=== PATIENT | female | born 1965 | race Caucasian/White ===

== ENCOUNTER 2021-02-08 07:19 | Inpatient (IN) | payer MEDICAID ==
[~2021-02-08] VITALS: Ht 165.1 cm; Wt 95.2 kg
[2021-02-08] MEDS ORDERED: SODIUM CHLORIDE 0.9% 1,000ML IVBOLUS ONE (07:30)
[2021-02-08 07:47] LABS: MEAN CORPUSCULAR HEMOGLOBIN 26.1 pg (27.0-34.8); MEAN CORPUSCULAR HGB CONC 32.4 g/dL (32.4-35.8); MEAN PLATELET VOLUME 7.5 fL (7.4-10.4); PLATELET COUNT 391 x10^3/uL (130-400); RED BLOOD COUNT 3.47 x10^6/uL (3.82-5.3); RED CELL DISTRIBUTION WIDTH 19.1 % (9.6-15.2)
[2021-02-08 07:57] LABS: ANION GAP 5 mmol/L (5-15); CALCIUM 9.1 mg/dL (8.5-10.1); CHLORIDE 91 mmol/L (98-107)
[2021-02-08 08:00] LABS: ALANINE AMINOTRANSFERASE 20 U/L (12-78); ALKALINE PHOSPHATASE 139 U/L (45-117); BILIRUBIN,TOTAL 0.5 mg/dL (0.2-1.0); CREATININE 0.63 mg/dL (0.55-1.02); TOTAL PROTEIN 6.9 g/dL (6.4-8.2)
[2021-02-08 08:12] LABS: ANISOCYTOSIS 1+; LYMPH#(MANUAL) 2.77 x10^3/uL (1-3.4); LYMPHS% (MANUAL) 36 % (22-44); MONOS#(MANUAL) 2.54 x10^3/uL (0.3-2.7); MONOS% (MANUAL) 33 % (2-9); SEG#(MANUAL) 2.39 x10^3/uL (1.8-6.8); SEGS% (MANUAL) 31 % (42-75)
[2021-02-08 08:13] LABS: <PLATELET ESTIMATE> ADEQUATE
--- NOTE | 2021-02-08 08:14 | NUR ---
IV PLACED, NS BOLUS INFUSING. ATTEMPT TO ST CATH FOR URINE. PT UNABLE TO LAY BACK MORE THAN 30 DEGREES. PT STATES SHE GETS UP TO BSC AT [place]. PT WITH ONE PERSON FULL ASSIST UP TO BSC. PT WITH EXERTIONAL DYSPNEA, DESAT TO 76%. PT C/O 10/10 PAIN TO BACK, ABD, "ALL OVER". AFTER PT RETURNED TO [facility], PULSE OX INCREASED TO 92% ON 15L NRB. ERP NOTIFIED. URINE COLLECTED/SENT TO LAB. CALL LIGHT WITHIN REACH.
[2021-02-08 08:30] LABS: MICROSCOPIC INDICATED
--- NOTE | 2021-02-08 08:51 | NUR ---
PT WITH FREQUENT REQUESTS, CALL LIGHT ON. PT ASKING FOR THIS RN TO STAY IN ROOM WITH HER, "DON'T WANT TO BE LEFT ALONE". PT VERY ANXIOUS, PULLING OFF OXYGEN MASK AT TIMES AND TANGLING IV LINE AND MONITORING CORDS. ERP AND ASSOCIATE MEDIA DIRECTOR NOTIFIED.
[2021-02-08] MEDS ORDERED: BUDE10.22 INH (09:45)
[2021-02-08] MEDS ORDERED: BISA5TAB5 PO (09:45)
[2021-02-08] MEDS ORDERED: CYCL10TA2 PO (09:45)
[2021-02-08] MEDS ORDERED: SODIUM PHOSPHATE PR (09:45)
[2021-02-08] MEDS ORDERED: POTA20PA25 PO (09:45)
[2021-02-08] MEDS ORDERED: LIDO700A20 TD (09:45)
[2021-02-08] MEDS ORDERED: FURO40TA6 PO (09:45)
[2021-02-08] MEDS ORDERED: MIDO10TA PO (09:45)
[2021-02-08] MEDS ORDERED: MYCO250C PO (09:45)
[2021-02-08] MEDS ORDERED: ALBU8.5H8 INH (09:45)
[2021-02-08] MEDS ORDERED: APIX5TAB PO (09:45)
[2021-02-08] MEDS ORDERED: PRED10TA14 PO (09:45)
[2021-02-08] MEDS ORDERED: TRAZ50TA66 PO (09:45)
[2021-02-08] MEDS ORDERED: ONDA4TAB7 PO (09:45)
[2021-02-08] MEDS ORDERED: POLY17PO5 PO (09:45)
[2021-02-08] MEDS ORDERED: OXYC10TA6 PO (09:45)
[2021-02-08] MEDS ORDERED: FENT-58 TD (09:45)
--- NOTE | 2021-02-08 09:54 | NUR ---
MED RECORDS RECEIVED FROM [facility]. ALL RESULTS BACK, PT FOR RECHECK.
--- NOTE | 2021-02-08 10:04 | NUR ---
ADD ON ORDER FOR BNP. PT ASSISTED IN REPOSITIONING. UNABLE TO FIND A POSITION OF COMFORT FOR PT. POC EXPLAINED AGAIN. PT CONTINUES TO ASK FOR THIS RN TO STAY IN ROOM. VS UPDATED IN COMPUTER.
--- NOTE | 2021-02-08 10:55 | NUR ---
PT CONTINUES TO PUT TELESCOPE MAINTENANCE LIGHT WITH SAME REQUESTS. POC REINFORCED. PT THEN STATING NEED FOR BR. D/T PT'S PAIN AND HYPOXIA WITH EXERTION, PT UNABLE TO GET UP TO BSC. BEDPAN PLACED BUT REMOVED BY PT IMMEDIATELY, STATING SHE DOESN'T WANT TO USE IT. FLEX OFFERED-PT REFUSED.
--- NOTE | 2021-02-08 11:02 | NUR ---
ADD ON ORDER FOR CT.
--- NOTE | 2021-02-08 11:39 | NUR ---
PT ON BSC, STATES UNABLE TO TRANSFER BACK TO BED WITH ONE PERSON ASSIST. SATS AT 86% WHILE SITTING ON BSC. 2 PERSON ASSIST BACK TO [facility]. PT ASSISTED W/REPOSITIONING, WARM BLANKET PROVIDED. CALL LIGHT WITHIN REACH.
--- NOTE | 2021-02-08 12:24 | NUR ---
CALL LIGHT ANSWERED. PT ASSISTED TO REPOSITION AGAIN. PT STATES NO POSITION OF COMFORT AND ASKS FOR PAIN MEDICATION. PER ERP, NO PAIN MEDICATION D/T PT'S HYPOXIA AND HIGH CO2 WHICH HAS BEEN EXPLAINED BEFORE TO PT. PT TO CT.
[2021-02-08] MEDS ORDERED: OMNIPAQUE 350 MG/ML, 100ML BOTTLE ONE (12:49)
--- NOTE | 2021-02-08 13:07 | NUR ---
CT RESULTS BACK, PT FOR RECHECK.
[2021-02-08] MEDS ORDERED: HALOPERIDOL 5 MG/ML ONE (13:16)
--- NOTE | 2021-02-08 13:27 | NUR ---
PT MEDICATED FOR 10/10 PAIN "ALL OVER", PER ERP ORDER. VSS. JOSIE WARMER AND WARM BLANKET PROVIDED. ADMIT ORDER IN PLACE, PT INFORMED.
[2021-02-08] MEDS ORDERED: HALOPERIDOL 5 MG/ML IM ONE (13:30)
[2021-02-08] MEDS ORDERED: POTASSIUM CHLORIDE 20 MEQ TAB.ER.PRT PO ONE (13:30)
[2021-02-08] MEDS ORDERED: POTASSIUM CHLORIDE 40 MEQ in SODIUM CHLORIDE 0.9% 500 ML IV ONE (13:30)
[2021-02-08] MEDS ORDERED: POTASSIUM CHLORIDE 20 MEQ TAB.ER.PRT ONE (13:45)
[2021-02-08] MEDS ORDERED: ALBUTEROL SULFATE 2.5 MG/3 ML NEB SCH (14:00)
[2021-02-08] MEDS ORDERED: METHYLNALTREXONE 12 MG/0.6 ML SYR SQ ONE (14:00)
[2021-02-08] MEDS ORDERED: ONDANSETRON ODT 4 MG PO PRN (14:00)
[2021-02-08] MEDS ORDERED: ONDANSETRON 2MG/ML, 2ML IVPush PRN (14:00)
--- NOTE | 2021-02-08 14:00 | NUR ---
POTASSIUM INFUSING. [facility] IN TO SEE PT. PT CONTINUES TO STATE PAIN IS 10/10, NO RELIEF YET FROM HALD[facility]. AWAITING ADMIT BED.
--- NOTE | 2021-02-08 14:10 | NUR ---
ADMIT BED ASSIGNMENT CHANGED TO [facility] BY [facility].
--- NOTE | 2021-02-08 14:32 | NUR ---
REPORT TO AMY MONAHAN, TRANSFER OF CARE AT THIS TIME.
--- NOTE | 2021-02-08 14:54 | NUR ---
REPORT GIVEN TO AGUSTÍN MONAHAN. PT RTG TO ROOM [id number]
[2021-02-08 15:18] VITALS: BP 108/77
[2021-02-08] MEDS: OXYcodone IR 5MG TABLET PO PRN ×2 (15:23→19:39)
[2021-02-08] MEDS ORDERED: ALBUTEROL SULFATE 2.5 MG/3 ML NPPB SCH (16:00)
[2021-02-08] MEDS: BUDESONIDE 0.5 MG/2 ML INHA INH SCH (17:00)
[2021-02-08] MEDS ORDERED: HALOPERIDOL 5 MG/ML IM PRN (17:00)
[2021-02-08] MEDS ORDERED: HALOPERIDOL 5 MG/ML IV PRN (17:00)
[2021-02-08] MEDS: ALBUTEROL/IPRATROPIUM 2.5MG/0.5MG, 3 ML NPPB SCH (17:00)
[2021-02-08] MEDS ORDERED: ALBUTEROL SULFATE 2.5 MG/3 ML ONE (17:05)
[2021-02-08] MEDS: CARVEDILOL 3.125 MG TABLET PO SCH (17:21)
[2021-02-08 18:52] VITALS: BP 109/72
[2021-02-08] MEDS ORDERED: TEMPLATE NON-FORMULARY MED. (Budesonide/Formoterol Fumarate (Symbicort 80-4.5 Mcg Inhaler) INH SCH (21:00)
[2021-02-08] MEDS ORDERED: BUDESONIDE 0.5 MG/2 ML INHA NPPB SCH (21:00)
[2021-02-08] MEDS: TRAZODONE 50MG TABLET PO SCH (21:53)
[2021-02-08] MEDS: LIDODERM 5% PATCH TD SCH (21:53)
[2021-02-08] MEDS: CALCIUM/VITAMIN D3 250-125 TABLET PO SCH (21:54)
[2021-02-08] MEDS: APIXABAN 5 MG TABLET PO SCH (21:55)
[2021-02-08] MEDS: CYCLOBENZAPRINE 10 MG TABLET PO SCH (21:55)
[2021-02-09] MEDS: OXYcodone IR 5MG TABLET PO PRN ×4 (01:06→23:22)
[2021-02-09 01:46] VITALS: BP 106/69
[2021-02-09] MEDS: ALBUTEROL/IPRATROPIUM 2.5MG/0.5MG, 3 ML NPPB SCH ×4 (02:30→20:17)
[2021-02-09] MEDS: ALENDRONATE 10 MG TABLET PO SCH (05:45)
[2021-02-09] MEDS: CARVEDILOL 3.125 MG TABLET PO SCH ×2 (05:45→18:11)
[2021-02-09 06:07] LABS: MEAN CORPUSCULAR HEMOGLOBIN 26.5 pg (27.0-34.8); MEAN CORPUSCULAR HGB CONC 32.8 g/dL (32.4-35.8); MEAN PLATELET VOLUME 7.9 fL (7.4-10.4); PLATELET COUNT 265 x10^3/uL (130-400); RED BLOOD COUNT 3.08 x10^6/uL (3.82-5.3); RED CELL DISTRIBUTION WIDTH 19.2 % (9.6-15.2)
[2021-02-09 06:20] LABS: CHLORIDE 95 mmol/L (98-107)
[2021-02-09 06:32] LABS: % IRON SATURATION 9 % (20-55); ANION GAP 6 mmol/L (5-15); CALCIUM 8.7 mg/dL (8.5-10.1); CREATININE 0.54 mg/dL (0.55-1.02); IRON LEVEL 19 mcg/dL (50-170); TOTAL IRON BINDING CAPACITY 214 mcg/dL (250-450)
[2021-02-09 06:41] LABS: LYMPH#(MANUAL) 2.15 x10^3/uL (1-3.4); LYMPHS% (MANUAL) 29 % (22-44); MONOS#(MANUAL) 2.44 x10^3/uL (0.3-2.7); MONOS% (MANUAL) 33 % (2-9); SEG#(MANUAL) 2.81 x10^3/uL (1.8-6.8); SEGS% (MANUAL) 38 % (42-75)
[2021-02-09 06:42] LABS: <PLATELET ESTIMATE> ADEQUATE; <PLT MORPHOLOGY> NORMAL PLT MORPH; ANISOCYTOSIS 1+
[2021-02-09 06:43] LABS: OVALOCYTES 1+; STOMATOCYTES 1+
[2021-02-09 07:01] VITALS: BP 93/64
[2021-02-09] MEDS: CALCIUM/VITAMIN D3 250-125 TABLET PO SCH ×2 (09:00→20:58)
[2021-02-09] MEDS: BUDESONIDE 0.5 MG/2 ML INHA INH SCH ×2 (09:00→20:17)
[2021-02-09] MEDS: POTASSIUM CHLORIDE 20 MEQ TAB.ER.PRT PO SCH ×2 (10:05→20:51)
[2021-02-09] MEDS: APIXABAN 5 MG TABLET PO SCH ×2 (10:07→20:52)
[2021-02-09] MEDS: LIDODERM 5% PATCH TD SCH ×2 (10:08→20:51)
[2021-02-09] MEDS: SODIUM CHLORIDE 0.9% 1,000 ML IV SCH (10:24)
[2021-02-09 11:07] LABS: OCCULT BLOOD NEGATIVE (NEGATIVE)
[2021-02-09 12:23] VITALS: BP 102/69
[2021-02-09] MEDS: FENTANYL REMOVE PATCH NOTE XX SCH (14:00)
[2021-02-09] MEDS: FENTANYL 100 MCG PATCH TD SCH (14:37)
[2021-02-09 18:09] VITALS: BP 97/60
[2021-02-09 20:43] VITALS: BP 110/77
[2021-02-09] MEDS: CYCLOBENZAPRINE 10 MG TABLET PO SCH (20:52)
[2021-02-09] MEDS: TRAZODONE 50MG TABLET PO SCH (20:52)
[2021-02-10] VITALS (7 sets, daily range): BP systolic 99–149; BP diastolic 65–77
[2021-02-10] MEDS: ALENDRONATE 10 MG TABLET PO SCH (06:16)
[2021-02-10] MEDS: OXYcodone IR 5MG TABLET PO PRN ×4 (06:16→20:13)
[2021-02-10] MEDS: CARVEDILOL 3.125 MG TABLET PO SCH ×2 (06:16→18:25)
[2021-02-10] MEDS: SODIUM CHLORIDE 0.9% 1,000 ML IV SCH ×2 (06:19→17:20)
[2021-02-10 06:40] LABS: MEAN CORPUSCULAR HEMOGLOBIN 26.2 pg (27.0-34.8); MEAN CORPUSCULAR HGB CONC 32.5 g/dL (32.4-35.8); MEAN PLATELET VOLUME 7.7 fL (7.4-10.4); PLATELET COUNT 258 x10^3/uL (130-400); RED BLOOD COUNT 3.14 x10^6/uL (3.82-5.3); RED CELL DISTRIBUTION WIDTH 19.6 % (9.6-15.2)
[2021-02-10 06:52] LABS: ANION GAP 4 mmol/L (5-15); CALCIUM 8.8 mg/dL (8.5-10.1); CHLORIDE 99 mmol/L (98-107)
[2021-02-10 06:55] LABS: CREATININE 0.53 mg/dL (0.55-1.02)
[2021-02-10] MEDS: ALBUTEROL/IPRATROPIUM 2.5MG/0.5MG, 3 ML NPPB SCH ×3 (06:57→21:00)
[2021-02-10] MEDS: BUDESONIDE 0.5 MG/2 ML INHA INH SCH ×2 (06:57→21:00)
[2021-02-10 07:35] LABS: SEG#(MANUAL) 1.94 x10^3/uL (1.8-6.8); SEGS% (MANUAL) 34 % (42-75)
[2021-02-10 07:36] LABS: LYMPH#(MANUAL) 2.05 x10^3/uL (1-3.4); LYMPHS% (MANUAL) 36 % (22-44); MONOS#(MANUAL) 1.71 x10^3/uL (0.3-2.7); MONOS% (MANUAL) 30 % (2-9)
[2021-02-10 07:37] LABS: <PLATELET ESTIMATE> ADEQUATE; <PLT MORPHOLOGY> NORMAL PLT MORPH; ANISOCYTOSIS 1+; PMNS WITH VACUOLES 1+; STOMATOCYTES 1+
[2021-02-10] MEDS: CALCIUM/VITAMIN D3 250-125 TABLET PO SCH ×2 (09:00→20:15)
[2021-02-10] MEDS ORDERED: POTASSIUM CHLORIDE 20 MEQ TAB.ER.PRT PO SCH (09:00)
[2021-02-10] MEDS: APIXABAN 5 MG TABLET PO SCH ×2 (09:33→20:14)
[2021-02-10] MEDS: LIDODERM 5% PATCH TD SCH ×2 (09:35→20:13)
[2021-02-10] MEDS: FERROUS SULFATE 325 MG TABLET PO SCH (15:27)
[2021-02-10] MEDS: TRAZODONE 50MG TABLET PO SCH (20:14)
[2021-02-10] MEDS: CYCLOBENZAPRINE 10 MG TABLET PO SCH (20:14)
[2021-02-10] MEDS: ACETAMINOPHEN 325 MG TABLET PO PRN (22:07)
[2021-02-11] MEDS: ALBUTEROL/IPRATROPIUM 2.5MG/0.5MG, 3 ML NPPB SCH ×4 (03:00→19:55)
[2021-02-11] MEDS: OXYcodone IR 5MG TABLET PO PRN ×5 (03:43→20:06)
[2021-02-11] MEDS: ACETAMINOPHEN 325 MG TABLET PO PRN ×3 (03:43→20:05)
[2021-02-11 03:53] VITALS: BP 100/67
[2021-02-11] MEDS: ALENDRONATE 10 MG TABLET PO SCH (05:32)
[2021-02-11] MEDS: CARVEDILOL 3.125 MG TABLET PO SCH ×2 (05:32→17:50)
[2021-02-11 05:47] LABS: ANION GAP 4 mmol/L (5-15); CALCIUM 8.6 mg/dL (8.5-10.1); CHLORIDE 101 mmol/L (98-107); CREATININE 0.65 mg/dL (0.55-1.02)
[2021-02-11 07:54] VITALS: BP 96/62
[2021-02-11] MEDS: CALCIUM/VITAMIN D3 250-125 TABLET PO SCH ×2 (09:00→20:06)
[2021-02-11] MEDS: APIXABAN 5 MG TABLET PO SCH ×2 (09:08→20:05)
[2021-02-11] MEDS: POTASSIUM CHLORIDE 20 MEQ TAB.ER.PRT PO SCH (09:08)
[2021-02-11] MEDS: LIDODERM 5% PATCH TD SCH ×2 (09:12→20:07)
[2021-02-11] MEDS: SODIUM CHLORIDE 0.9% 1,000 ML IV SCH ×2 (09:18→21:49)
[2021-02-11] MEDS: BUDESONIDE 0.5 MG/2 ML INHA INH SCH ×2 (09:20→19:55)
[2021-02-11 12:08] VITALS: BP 106/72
[2021-02-11] MEDS: TRAZODONE 50MG TABLET PO SCH (20:05)
[2021-02-11] MEDS: CYCLOBENZAPRINE 10 MG TABLET PO SCH (20:05)
[2021-02-11 20:27] VITALS: BP 98/63
[2021-02-12] VITALS (7 sets, daily range): BP systolic 98–131; BP diastolic 62–93
[2021-02-12] MEDS: ACETAMINOPHEN 325 MG TABLET PO PRN ×3 (00:58→22:08)
[2021-02-12] MEDS: OXYcodone IR 5MG TABLET PO PRN ×4 (00:59→16:17)
[2021-02-12] MEDS: ALBUTEROL/IPRATROPIUM 2.5MG/0.5MG, 3 ML NPPB SCH ×4 (03:40→21:15)
[2021-02-12] MEDS: ALENDRONATE 10 MG TABLET PO SCH (06:13)
[2021-02-12] MEDS: CARVEDILOL 3.125 MG TABLET PO SCH ×2 (06:13→17:27)
[2021-02-12 06:52] LABS: ANION GAP 4 mmol/L (5-15); CALCIUM 8.5 mg/dL (8.5-10.1); CHLORIDE 105 mmol/L (98-107); CREATININE 0.58 mg/dL (0.55-1.02)
[2021-02-12] MEDS: SODIUM CHLORIDE 0.9% 1,000 ML IV SCH (08:00)
[2021-02-12] MEDS: APIXABAN 5 MG TABLET PO SCH ×2 (08:12→22:08)
[2021-02-12] MEDS: LIDODERM 5% PATCH TD SCH ×2 (08:12→22:09)
[2021-02-12] MEDS: POTASSIUM CHLORIDE 20 MEQ TAB.ER.PRT PO SCH (08:12)
[2021-02-12] MEDS: CALCIUM/VITAMIN D3 250-125 TABLET PO SCH ×2 (08:12→22:09)
[2021-02-12] MEDS: BUDESONIDE 0.5 MG/2 ML INHA INH SCH ×2 (08:15→21:15)
[2021-02-12] MEDS: POLYETHYLENE GLYCOL 17 GM PACKET PO PRN (08:25)
[2021-02-12] MEDS: FENTANYL REMOVE PATCH NOTE XX SCH (14:00)
[2021-02-12] MEDS: FERROUS SULFATE 325 MG TABLET PO SCH (14:24)
[2021-02-12] MEDS: FENTANYL 100 MCG PATCH TD SCH (14:24)
[2021-02-12] MEDS: CYCLOBENZAPRINE 10 MG TABLET PO SCH (22:08)
[2021-02-12] MEDS: TRAZODONE 50MG TABLET PO SCH (22:08)
[2021-02-13 00:01] VITALS: BP 102/71
[2021-02-13] MEDS: OXYcodone IR 5MG TABLET PO PRN ×5 (00:16→20:36)
[2021-02-13] MEDS: ALBUTEROL/IPRATROPIUM 2.5MG/0.5MG, 3 ML NPPB SCH ×4 (03:15→19:58)
[2021-02-13 04:56] VITALS: BP 101/68
[2021-02-13] MEDS: POLYETHYLENE GLYCOL 17 GM PACKET PO PRN (05:54)
[2021-02-13] MEDS: ACETAMINOPHEN 325 MG TABLET PO PRN ×2 (05:54→12:43)
[2021-02-13] MEDS: ALENDRONATE 10 MG TABLET PO SCH (05:54)
[2021-02-13 05:58] VITALS: BP 95/63
[2021-02-13] MEDS: CARVEDILOL 3.125 MG TABLET PO SCH ×2 (05:58→17:44)
[2021-02-13 07:03] VITALS: BP 104/66
[2021-02-13] MEDS: LIDODERM 5% PATCH TD SCH ×2 (08:16→20:38)
[2021-02-13] MEDS: BUDESONIDE 0.5 MG/2 ML INHA INH SCH ×2 (08:17→19:58)
[2021-02-13] MEDS: CALCIUM/VITAMIN D3 250-125 TABLET PO SCH ×2 (09:38→20:34)
[2021-02-13] MEDS: POTASSIUM CHLORIDE 20 MEQ TAB.ER.PRT PO SCH (09:38)
[2021-02-13] MEDS: APIXABAN 5 MG TABLET PO SCH ×2 (09:38→20:35)
[2021-02-13 14:31] VITALS: BP 109/75
[2021-02-13] MEDS: SODIUM CHLORIDE 0.9% 1,000 ML IV SCH ×2 (17:20)
[2021-02-13 19:59] VITALS: BP 99/68
[2021-02-13] MEDS ORDERED: SODIUM CHLORIDE NASAL SPRAY 45ML BOTTLE NAS PRN (20:30)
[2021-02-13] MEDS: CYCLOBENZAPRINE 10 MG TABLET PO SCH (20:33)
[2021-02-13] MEDS: TRAZODONE 50MG TABLET PO SCH (20:35)
[2021-02-14 02:00] VITALS: BP 111/71
[2021-02-14] MEDS: ALBUTEROL/IPRATROPIUM 2.5MG/0.5MG, 3 ML NPPB SCH ×4 (02:16→21:00)
[2021-02-14] MEDS: ALENDRONATE 10 MG TABLET PO SCH (05:32)
[2021-02-14] MEDS: CARVEDILOL 3.125 MG TABLET PO SCH ×2 (05:32→17:53)
[2021-02-14] MEDS: OXYcodone IR 5MG TABLET PO PRN ×4 (05:41→23:47)
[2021-02-14] MEDS: BUDESONIDE 0.5 MG/2 ML INHA INH SCH ×2 (07:25→21:00)
[2021-02-14 07:53] VITALS: BP 109/69
[2021-02-14] MEDS: APIXABAN 5 MG TABLET PO SCH ×2 (08:13→20:54)
[2021-02-14] MEDS: POTASSIUM CHLORIDE 20 MEQ TAB.ER.PRT PO SCH (08:13)
[2021-02-14] MEDS: LIDODERM 5% PATCH TD SCH ×2 (08:14→20:55)
[2021-02-14] MEDS: SODIUM CHLORIDE 0.9% 1,000 ML IV SCH (08:15)
[2021-02-14] MEDS: CALCIUM/VITAMIN D3 250-125 TABLET PO SCH ×2 (08:15→20:54)
[2021-02-14] MEDS: FERROUS SULFATE 325 MG TABLET PO SCH (16:26)
[2021-02-14 17:54] VITALS: BP 103/70
[2021-02-14 20:18] VITALS: BP 114/79
[2021-02-14] MEDS: CYCLOBENZAPRINE 10 MG TABLET PO SCH (20:54)
[2021-02-14] MEDS: TRAZODONE 50MG TABLET PO SCH (20:54)
[2021-02-15 01:51] VITALS: BP 106/72
[2021-02-15 02:00] VITALS: BP 106/72
[2021-02-15] MEDS: ALBUTEROL/IPRATROPIUM 2.5MG/0.5MG, 3 ML NPPB SCH ×4 (02:08→20:04)
[2021-02-15] MEDS: CARVEDILOL 3.125 MG TABLET PO SCH ×2 (05:12→17:56)
[2021-02-15] MEDS: ALENDRONATE 10 MG TABLET PO SCH (05:12)
[2021-02-15 05:22] LABS: MEAN CORPUSCULAR HEMOGLOBIN 26.6 pg (27.0-34.8); MEAN CORPUSCULAR HGB CONC 32.4 g/dL (32.4-35.8); MEAN PLATELET VOLUME 7.3 fL (7.4-10.4); PLATELET COUNT 248 x10^3/uL (130-400); RED BLOOD COUNT 3.06 x10^6/uL (3.82-5.3); RED CELL DISTRIBUTION WIDTH 18.5 % (9.6-15.2)
[2021-02-15 05:30] LABS: CALCIUM 8.5 mg/dL (8.5-10.1); CHLORIDE 102 mmol/L (98-107)
[2021-02-15 05:34] LABS: ANION GAP 5 mmol/L (5-15); CREATININE 0.64 mg/dL (0.55-1.02)
[2021-02-15 05:55] LABS: ANISOCYTOSIS 1+; BAND#(MANUAL) 0.05 x10^3/uL; BANDS%(MANUAL) 1 % (0-7); LYMPH#(MANUAL) 2.11 x10^3/uL (1-3.4); LYMPHS% (MANUAL) 44 % (22-44); MONOS#(MANUAL) 1.44 x10^3/uL (0.3-2.7); MONOS% (MANUAL) 30 % (2-9); SEGS% (MANUAL) 25 % (42-75); STOMATOCYTES 1+
[2021-02-15 05:56] LABS: <PLATELET ESTIMATE> ADEQUATE; <PLT MORPHOLOGY> NORMAL PLT MORPH; PMNS WITH VACUOLES 1+
[2021-02-15] MEDS: OXYcodone IR 5MG TABLET PO PRN ×2 (06:11→13:03)
[2021-02-15 06:30] VITALS: BP 121/71
[2021-02-15] MEDS: CALCIUM/VITAMIN D3 250-125 TABLET PO SCH ×2 (09:00→20:23)
[2021-02-15] MEDS: BUDESONIDE 0.5 MG/2 ML INHA INH SCH ×2 (09:35→20:04)
[2021-02-15] MEDS: APIXABAN 5 MG TABLET PO SCH ×2 (09:59→20:24)
[2021-02-15] MEDS: POTASSIUM CHLORIDE 20 MEQ TAB.ER.PRT PO SCH (09:59)
[2021-02-15] MEDS: LIDODERM 5% PATCH TD SCH ×3 (10:00→20:35)
[2021-02-15] MEDS: ACETAMINOPHEN 325 MG TABLET PO PRN (10:00)
[2021-02-15 12:47] VITALS: BP 101/66
[2021-02-15] MEDS: POLYETHYLENE GLYCOL 17 GM PACKET PO PRN (13:03)
[2021-02-15] MEDS: FENTANYL REMOVE PATCH NOTE XX SCH (14:00)
[2021-02-15] MEDS: FENTANYL 100 MCG PATCH TD SCH (14:08)
[2021-02-15] MEDS: CALCIUM CARBONATE 500 MG TAB.CHEW PO PRN ×2 (15:58→22:18)
[2021-02-15 17:45] VITALS: BP 111/73
[2021-02-15] MEDS ORDERED: FUROSEMIDE 40 MG TABLET ONE (17:57)
[2021-02-15] MEDS: FUROSEMIDE 40 MG TABLET PO SCH (17:59)
[2021-02-15 19:00] VITALS: BP 112/76
[2021-02-15] MEDS: CYCLOBENZAPRINE 10 MG TABLET PO SCH (20:22)
[2021-02-15] MEDS: BISACODYL 5 MG EC TABLET PO PRN (20:23)
[2021-02-15] MEDS: HYDROcodone/APAP 5/325 TABLET PO PRN (20:24)
[2021-02-15] MEDS: TRAZODONE 50MG TABLET PO SCH (20:24)
[2021-02-16 00:40] VITALS: BP 125/74
[2021-02-16] MEDS: HYDROcodone/APAP 5/325 TABLET PO PRN ×5 (01:46→22:07)
[2021-02-16] MEDS: ALBUTEROL/IPRATROPIUM 2.5MG/0.5MG, 3 ML NPPB SCH ×4 (02:55→21:00)
[2021-02-16 05:23] VITALS: BP 109/76
[2021-02-16] MEDS: ALENDRONATE 10 MG TABLET PO SCH (05:35)
[2021-02-16] MEDS: CARVEDILOL 3.125 MG TABLET PO SCH ×2 (05:35→17:29)
[2021-02-16] MEDS: CALCIUM CARBONATE 500 MG TAB.CHEW PO PRN ×2 (05:52→09:10)
[2021-02-16] MEDS: FUROSEMIDE 40 MG TABLET PO SCH ×2 (08:19→16:30)
[2021-02-16] MEDS: APIXABAN 5 MG TABLET PO SCH ×2 (08:19→20:24)
[2021-02-16] MEDS: CALCIUM/VITAMIN D3 250-125 TABLET PO SCH ×2 (08:20→20:25)
[2021-02-16] MEDS: POTASSIUM CHLORIDE 20 MEQ TAB.ER.PRT PO SCH (08:20)
[2021-02-16] MEDS: LIDODERM 5% PATCH TD SCH ×2 (08:20→20:26)
[2021-02-16] MEDS: BUDESONIDE 0.5 MG/2 ML INHA INH SCH ×2 (08:38→21:00)
[2021-02-16] MEDS: POLYETHYLENE GLYCOL 17 GM PACKET PO PRN (09:10)
[2021-02-16 13:39] VITALS: BP 105/73
[2021-02-16] MEDS: FERROUS SULFATE 325 MG TABLET PO SCH (14:51)
[2021-02-16] MEDS: BISACODYL 5 MG EC TABLET PO PRN (14:51)
[2021-02-16] MEDS ORDERED: BISACODYL 10 MG SUPP PR PRN (16:30)
[2021-02-16 17:20] VITALS: BP 111/73
[2021-02-16 18:33] VITALS: BP 112/75
[2021-02-16 20:00] VITALS: BP 112/75
[2021-02-16] MEDS: CYCLOBENZAPRINE 10 MG TABLET PO SCH (20:24)
[2021-02-16] MEDS: TRAZODONE 50MG TABLET PO SCH (20:24)
[2021-02-16] MEDS ORDERED: PINK LADY ENEMA 490 ML BOTTLE PR ONE (21:00)
[2021-02-17] VITALS (7 sets, daily range): BP systolic 95–117; BP diastolic 66–78
[2021-02-17] MEDS: ALBUTEROL/IPRATROPIUM 2.5MG/0.5MG, 3 ML NPPB SCH ×4 (03:00→19:41)
[2021-02-17] MEDS: CARVEDILOL 3.125 MG TABLET PO SCH ×2 (05:45→16:51)
[2021-02-17] MEDS: ALENDRONATE 10 MG TABLET PO SCH (05:45)
[2021-02-17] MEDS: HYDROcodone/APAP 5/325 TABLET PO PRN ×4 (08:20→21:00)
[2021-02-17] MEDS: APIXABAN 5 MG TABLET PO SCH ×2 (08:20→20:36)
[2021-02-17] MEDS: FUROSEMIDE 40 MG TABLET PO SCH ×2 (08:21→16:51)
[2021-02-17] MEDS: CALCIUM/VITAMIN D3 250-125 TABLET PO SCH ×2 (08:21→20:37)
[2021-02-17] MEDS: LIDODERM 5% PATCH TD SCH ×2 (08:22→20:37)
[2021-02-17] MEDS: POTASSIUM CHLORIDE 20 MEQ TAB.ER.PRT PO SCH (08:22)
[2021-02-17] MEDS: BUDESONIDE 0.5 MG/2 ML INHA INH SCH ×2 (12:16→19:41)
[2021-02-17] MEDS ORDERED: TIZANIDINE 4MG TABLET PO PRN (17:30)
[2021-02-17] MEDS: CYCLOBENZAPRINE 10 MG TABLET PO SCH (20:36)
[2021-02-17] MEDS: TRAZODONE 50MG TABLET PO SCH (20:37)
[2021-02-18 02:00] VITALS: BP_SYST 94; BP_SYST 98; BP_DIAS 64
[2021-02-18] MEDS: ALBUTEROL/IPRATROPIUM 2.5MG/0.5MG, 3 ML NPPB SCH ×4 (02:51→20:18)
[2021-02-18] MEDS: HYDROcodone/APAP 5/325 TABLET PO PRN ×4 (03:18→21:50)
[2021-02-18] MEDS: ALENDRONATE 10 MG TABLET PO SCH (05:22)
[2021-02-18] MEDS: CARVEDILOL 3.125 MG TABLET PO SCH ×2 (05:22→17:26)
[2021-02-18 07:49] VITALS: BP 110/77
[2021-02-18] MEDS: LIDODERM 5% PATCH TD SCH ×2 (08:56→21:34)
[2021-02-18] MEDS: APIXABAN 5 MG TABLET PO SCH ×2 (08:56→21:34)
[2021-02-18] MEDS: FUROSEMIDE 40 MG TABLET PO SCH ×2 (08:57→17:26)
[2021-02-18] MEDS: POTASSIUM CHLORIDE 20 MEQ TAB.ER.PRT PO SCH (08:57)
[2021-02-18] MEDS: CALCIUM/VITAMIN D3 250-125 TABLET PO SCH ×2 (08:57→21:34)
[2021-02-18] MEDS: BUDESONIDE 0.5 MG/2 ML INHA INH SCH ×2 (09:30→20:18)
[2021-02-18 13:17] VITALS: BP 116/80
[2021-02-18] MEDS: FENTANYL REMOVE PATCH NOTE XX SCH (13:20)
[2021-02-18] MEDS: FENTANYL 100 MCG PATCH TD SCH (13:20)
[2021-02-18] MEDS: POLYETHYLENE GLYCOL 17 GM PACKET PO PRN (15:26)
[2021-02-18] MEDS: FERROUS SULFATE 325 MG TABLET PO SCH (15:26)
[2021-02-18 18:31] VITALS: BP 116/79
[2021-02-18] MEDS: CYCLOBENZAPRINE 10 MG TABLET PO SCH (21:33)
[2021-02-18] MEDS: TRAZODONE 50MG TABLET PO SCH (21:34)
[2021-02-18] MEDS: BISACODYL 5 MG EC TABLET PO PRN (21:50)
[2021-02-19 00:52] VITALS: BP 116/76
[2021-02-19] MEDS: ALBUTEROL/IPRATROPIUM 2.5MG/0.5MG, 3 ML NPPB SCH ×4 (02:30→19:53)
[2021-02-19] MEDS: ALENDRONATE 10 MG TABLET PO SCH (06:10)
[2021-02-19] MEDS: CARVEDILOL 3.125 MG TABLET PO SCH ×2 (06:11→17:34)
[2021-02-19] MEDS: HYDROcodone/APAP 5/325 TABLET PO PRN ×3 (06:14→20:14)
[2021-02-19 06:16] LABS: MEAN CORPUSCULAR HEMOGLOBIN 26.5 pg (27.0-34.8); MEAN CORPUSCULAR HGB CONC 32.5 g/dL (32.4-35.8); MEAN PLATELET VOLUME 8.1 fL (7.4-10.4); PLATELET COUNT 251 x10^3/uL (130-400); RED BLOOD COUNT 3.48 x10^6/uL (3.82-5.3); RED CELL DISTRIBUTION WIDTH 18.9 % (9.6-15.2)
[2021-02-19 06:25] LABS: CALCIUM 8.4 mg/dL (8.5-10.1)
[2021-02-19 06:33] LABS: ANION GAP 4 mmol/L (5-15); CHLORIDE 97 mmol/L (98-107)
[2021-02-19 06:48] LABS: BAND#(MANUAL) 0.07 x10^3/uL; BANDS%(MANUAL) 1 % (0-7); LYMPHS% (MANUAL) 32 % (22-44); METAMYELOCYTES# (MANUAL) 0.07 x10^3/uL (0-0); METAMYELOCYTES% (MANUAL) 1 % (0-1); MONOS#(MANUAL) 2.45 x10^3/uL (0.3-2.7); MONOS% (MANUAL) 34 % (2-9); SEGS% (MANUAL) 32 % (42-75)
[2021-02-19 06:49] LABS: ANISOCYTOSIS 1+
[2021-02-19 06:50] LABS: <PLATELET ESTIMATE> ADEQUATE; <PLT MORPHOLOGY> NORMAL PLT MORPH; PMNS WITH VACUOLES 1+
[2021-02-19 06:51] LABS: STOMATOCYTES 1+
[2021-02-19 07:14] VITALS: BP 106/73
[2021-02-19] MEDS: BUDESONIDE 0.5 MG/2 ML INHA INH SCH ×2 (08:15→19:53)
[2021-02-19] MEDS: APIXABAN 5 MG TABLET PO SCH ×2 (08:41→20:14)
[2021-02-19] MEDS: FUROSEMIDE 40 MG TABLET PO SCH ×2 (08:41→17:34)
[2021-02-19] MEDS: CALCIUM/VITAMIN D3 250-125 TABLET PO SCH ×2 (08:42→20:14)
[2021-02-19] MEDS: LIDODERM 5% PATCH TD SCH ×2 (08:42→20:15)
[2021-02-19] MEDS: POTASSIUM CHLORIDE 20 MEQ TAB.ER.PRT PO SCH ×2 (08:42→17:34)
[2021-02-19 13:52] VITALS: BP 113/78
[2021-02-19] MEDS: CALCIUM CARBONATE 500 MG TAB.CHEW PO PRN (16:14)
[2021-02-19 18:35] VITALS: BP 104/70
[2021-02-19] MEDS: TRAZODONE 50MG TABLET PO SCH (20:14)
[2021-02-19] MEDS: CYCLOBENZAPRINE 10 MG TABLET PO SCH (20:14)
[2021-02-20 00:07] VITALS: BP 109/74
[2021-02-20] MEDS: HYDROcodone/APAP 5/325 TABLET PO PRN ×3 (02:06→14:12)
[2021-02-20] MEDS: ALBUTEROL/IPRATROPIUM 2.5MG/0.5MG, 3 ML NPPB SCH ×3 (02:08→14:13)
[2021-02-20 05:44] LABS: CHLORIDE 99 mmol/L (98-107)
[2021-02-20 05:46] LABS: MEAN CORPUSCULAR HEMOGLOBIN 27.1 pg (27.0-34.8); MEAN CORPUSCULAR HGB CONC 33.6 g/dL (32.4-35.8); MEAN PLATELET VOLUME 8.1 fL (7.4-10.4); PLATELET COUNT 239 x10^3/uL (130-400); RED BLOOD COUNT 3.32 x10^6/uL (3.82-5.3); RED CELL DISTRIBUTION WIDTH 18.6 % (9.6-15.2)
[2021-02-20 05:49] LABS: ANION GAP 6 mmol/L (5-15); CALCIUM 8.4 mg/dL (8.5-10.1); CREATININE 0.54 mg/dL (0.55-1.02)
[2021-02-20] MEDS: ALENDRONATE 10 MG TABLET PO SCH (06:19)
[2021-02-20 06:20] LABS: BAND#(MANUAL) 0.08 x10^3/uL; BANDS%(MANUAL) 1 % (0-7)
[2021-02-20] MEDS: CARVEDILOL 3.125 MG TABLET PO SCH (06:20)
[2021-02-20 06:21] LABS: ANISOCYTOSIS 1+; LYMPH#(MANUAL) 2.71 x10^3/uL (1-3.4); LYMPHS% (MANUAL) 33 % (22-44); MONOS#(MANUAL) 2.13 x10^3/uL (0.3-2.7); MONOS% (MANUAL) 26 % (2-9); SEG#(MANUAL) 3.28 x10^3/uL (1.8-6.8); SEGS% (MANUAL) 40 % (42-75); STOMATOCYTES 1+
[2021-02-20 06:22] LABS: <PLATELET ESTIMATE> ADEQUATE; <PLT MORPHOLOGY> NORMAL PLT MORPH; PMNS WITH VACUOLES 1+
[2021-02-20 06:38] VITALS: BP 102/67
[2021-02-20] MEDS: BUDESONIDE 0.5 MG/2 ML INHA INH SCH (07:08)
[2021-02-20] MEDS: APIXABAN 5 MG TABLET PO SCH (08:16)
[2021-02-20] MEDS: FUROSEMIDE 40 MG TABLET PO SCH (08:16)
[2021-02-20] MEDS: LIDODERM 5% PATCH TD SCH (08:17)
[2021-02-20] MEDS: CALCIUM/VITAMIN D3 250-125 TABLET PO SCH (08:17)
[2021-02-20] MEDS ORDERED: POTASSIUM CHLORIDE 20 MEQ TAB.ER.PRT PO SCH (09:00)
[2021-02-20] MEDS ORDERED: POTASSIUM CHLORIDE 20 MEQ TAB.ER.PRT PO ONE (12:00)
[2021-02-20 13:28] VITALS: BP 104/66
[2021-02-20] MEDS ORDERED: POTA20TA6 PO (13:39)
[2021-02-20] MEDS ORDERED: APIX5TAB PO (13:39)
[2021-02-20] MEDS ORDERED: PRED10TA PO (13:39)
[2021-02-20] MEDS ORDERED: TRAZ50TA66 PO (13:39)
[2021-02-20] MEDS ORDERED: BUDE0.5A INH (13:39)
[2021-02-20] MEDS ORDERED: ALEN10TA10 PO (13:39)
[2021-02-20] MEDS ORDERED: IPRA3AMP30 NPPB (13:39)
[2021-02-20] MEDS ORDERED: FERR-36 PO (13:39)
[2021-02-20] MEDS ORDERED: CYCL10TA2 PO (13:39)
[2021-02-20] MEDS ORDERED: CALC200T24 PO (13:39)
[2021-02-20] MEDS ORDERED: HYDR-2214 PO ×2 (13:39→13:44)
[2021-02-20] MEDS ORDERED: POLY17PO5 PO (13:39)
[2021-02-20] MEDS ORDERED: ACET325T26 PO (13:39)
[2021-02-20] MEDS ORDERED: BISA10SU4 PR (13:39)
[2021-02-20] MEDS ORDERED: FURO40TA6 PO (13:39)
[2021-02-20] MEDS ORDERED: CARV3.1212 PO (13:39)
[2021-02-20] MEDS ORDERED: FENT1PAT78 TD ×2 (13:39→13:44)
[2021-02-20] MEDS ORDERED: TIZA4TAB2 PO (13:39)
[2021-02-20] MEDS ORDERED: CALC1TAB68 PO (13:39)
[2021-02-20] MEDS ORDERED: BISA5TAB5 PO (13:39)
[2021-02-20] MEDS: FERROUS SULFATE 325 MG TABLET PO SCH (14:11)
== END 2021-02-20 15:01 | DRG 133 ==
LOC: ED 07:59 → EDIP 13:49 → 4WST 15:02
PROVIDERS: ADMIT Internal Medicine; ATTEND Internal Medicine
PROC: 0T9B70Z Drainage of Bladder with Drainage Device, Via Natural or Artificial Opening (ICD-10-PCS; principal; 2021-02-08)
PROC: 5A0935A Assistance with Respiratory Ventilation, Less than 24 Consecutive Hours, High Flow/Velocity Cannula (ICD-10-PCS; 2021-02-09)
PROC: 5A0935A Assistance with Respiratory Ventilation, Less than 24 Consecutive Hours, High Flow/Velocity Cannula (ICD-10-PCS; 2021-02-10)
PROC: 5A0935A Assistance with Respiratory Ventilation, Less than 24 Consecutive Hours, High Flow/Velocity Cannula (ICD-10-PCS; 2021-02-11)
PROC: 5A0935A Assistance with Respiratory Ventilation, Less than 24 Consecutive Hours, High Flow/Velocity Cannula (ICD-10-PCS; 2021-02-13)
PROC: 5A0935A Assistance with Respiratory Ventilation, Less than 24 Consecutive Hours, High Flow/Velocity Cannula (ICD-10-PCS; 2021-02-14)
PROC: 5A0935A Assistance with Respiratory Ventilation, Less than 24 Consecutive Hours, High Flow/Velocity Cannula (ICD-10-PCS; 2021-02-16)
PROC: 5A0935A Assistance with Respiratory Ventilation, Less than 24 Consecutive Hours, High Flow/Velocity Cannula (ICD-10-PCS; 2021-02-17)
PROC: 5A0935A Assistance with Respiratory Ventilation, Less than 24 Consecutive Hours, High Flow/Velocity Cannula (ICD-10-PCS; 2021-02-18)
DX: J96.21 Acute and chronic respiratory failure with hypoxia (principal); I50.33 Acute on chronic diastolic (congestive) heart failure; J84.9 Interstitial pulmonary disease, unspecified; D68.69 Other thrombophilia; E87.1 Hypo-osmolality and hyponatremia; M48.54XA Collapsed vertebra, not elsewhere classified, thoracic region, initial encounter for fracture; I11.0 Hypertensive heart disease with heart failure; D50.9 Iron deficiency anemia, unspecified; E11.9 Type 2 diabetes mellitus without complications; E66.9 Obesity, unspecified; K59.03 Drug induced constipation; E87.6 Hypokalemia; G89.29 Other chronic pain; K76.0 Fatty (change of) liver, not elsewhere classified; M06.9 Rheumatoid arthritis, unspecified; M81.0 Age-related osteoporosis without current pathological fracture; T38.0X5A Adverse effect of glucocorticoids and synthetic analogues, initial encounter; T40.605A Adverse effect of unspecified narcotics, initial encounter; T50.2X5A Adverse effect of carbonic-anhydrase inhibitors, benzothiadiazides and other diuretics, initial encounter; Z66 Do not resuscitate; Z68.35 Body mass index [BMI] 35.0-35.9, adult; Z79.01 Long term (current) use of anticoagulants; Z79.52 Long term (current) use of systemic steroids; Z86.718 Personal history of other venous thrombosis and embolism; Z87.01 Personal history of pneumonia (recurrent); Z87.891 Personal history of nicotine dependence
CPT/HCPCS: 36415; 36600; 96361; 96374; 99285; J7626; 74177; 80048; 80053; 81001; 82272; 82803; 82962; 83540; 83550; 83690; 83735; 83880; 85025; 93005; 94640; G0378; J2405; J3480; J7517; Q0162; Q9967; J1630; J7030; J7040; J7512